=== PATIENT | female | born 1955 | race Caucasian/White ===

== ENCOUNTER 2017-10-24 07:28 | Day surgery (SDC) | payer OTHER ==
[~2017-10-24] VITALS: Ht 167.6 cm; Wt 74.8 kg
--- NOTE | ~2017-10-24 | OR ---
[facility] [address], [place] [address] Draft DATE OF OPERATION: 10/24/2017 SURGEON: Isaías Mcgarry MD PREOPERATIVE DIAGNOSIS: Colon screening. POSTOPERATIVE DIAGNOSIS: Sigmoid diverticulosis. No evidence of polyps. PROCEDURE: Total colonoscopy to cecum. ANESTHESIA: Intravenous sedation, fentanyl 100 mcg, Versed 5 mg. INDICATION: This 61-year-old white woman is here for colon screening. Her last colonoscopy was in 2008, which was normal. It is notable she underwent sigmoid colectomy for diverticulosis in 2007. She has had no problems since that time. She is admitted at this time to undergo surveillance colonoscopy. She understand the risks of bleeding, infection, and perforation. FINDINGS: The prep was excellent. Complete colonoscopy was undertaken to the cecum without question. The ileocecal valve and appendiceal orifice were normal. She had a few scattered diverticula of the remaining colon. The anastomosis was imperceptible and certainly with no sign of stricture. The rectum was normal. DESCRIPTION OF PROCEDURE: The patient was brought to the endoscopy suite and placed in lateral decubitus position, given intravenous sedation to the point of slurred speech and nystagmus. Digital rectal examination was normal. An Olympus video colonoscope was passed in the rectum and manipulated throughout the colon ultimately intubating the cecum itself. The ileocecal valve and appendiceal orifice were normal. Scope was withdrawn from that point and examination throughout was undertaken showing no sign of abnormality until the left colon with sigmoid, where some diverticula were noted. The anastomosis was imperceptible. The scope was withdrawn to the rectum and retroflexed view was normal. Scope was removed and the patient was taken PATIENT NAME: LYNDSEY WHEELER OPERATIVE REPORT DATE OF : 53 REPORT #: [id number] PHYSICIAN: ISAÍAS MCGARRY MD PCP: KASANDRA GRIER REPORT IS CONFIDENTIAL AND NOT TO BE RELEASED WITHOUT AUTHORIZATION [facility] [address], [place] [address] Draft to recovery in good condition. CONCLUDING DIAGNOSES: 1. Status post sigmoid colectomy. Remaining left-sided diverticulosis. 2. No evidence of polyps. PLAN: Recommend repeat colonoscopy in 10 years, sooner if indicated. She will return to the ongoing care of Dr. Alvarenga and ANA LAURA Flores. MD NICOLE Rodríguez/ANGELES /[id number] Copies: ~ PATIENT NAME: JOSEPHINE WHEELERANTHONY TENORIO OPERATIVE REPORT DATE OF : 53 REPORT #: [id number] PHYSICIAN: ISAÍAS MCGARRY MD PCP: KASANDRA GRIER REPORT IS CONFIDENTIAL AND NOT TO BE RELEASED WITHOUT AUTHORIZATION
[~2017-10-24 07:28] MED LIST: AZITHROMYCIN250 MG PO; PREDNISONE20 MG PO; PROAIR HFA8.5 GM INH; PROMETHAZINE-COD5 ML PO
[2017-10-24] MEDS ORDERED: CALCIUM +D & M1 EACH PO (07:43)
--- NOTE | 2017-10-24 09:11 | NUR ---
10/24/17 0911 Sol De La [place]ega 0846- PT ARRIVES TO PACU. EASILY AROUSABLE TO VOICE. REPORTS NO PAIN OR NAUSEA. PT DROWSY AND INSTANTLY BACK TO SLEEP. 0902- DR. MCGARRY AT THE BEDSIDE TO TALK WITH PT. PT REMAINS DROWSY.
== END 2017-10-24 09:37 | disposition home or self-care (01) ==
LOC: OPS 07:28 → DS 07:28 → OPS 08:30 → DS 08:30 → OPS 09:37
PROVIDERS: Surgery
PROC: 0DJD8ZZ Inspection of Lower Intestinal Tract, Via Natural or Artificial Opening Endoscopic (ICD-10-PCS; principal; 2017-10-24 08:30)
DX: Z12.11 Encounter for screening for malignant neoplasm of colon (principal); K57.30 Diverticulosis of large intestine without perforation or abscess without bleeding; Z98.890 Other specified postprocedural states; Z90.49 Acquired absence of other specified parts of digestive tract
CPT/HCPCS: G0500; J2250; J3010; J7120